=== PATIENT | male | born 1975 | race Caucasian/White ===

== ENCOUNTER 2019-11-05 20:45 | Emergency (ER) | payer OTHER ==
[2019-11-05 21:01] VITALS: BP 138/91; PULSE 87; TEMP 98.4; BMI 31.1
[2019-11-05] MEDS ORDERED: KETOROLAC TROMETHAMINE 30 MG/1 ML VIAL IM ONE (21:03)
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
[2019-11-05] MEDS ORDERED: KETOROLAC TROMETHAMINE 30 MG/1 ML VIAL ONE (22:09)
== END 2019-11-05 22:22 | disposition home or self-care (01) ==
LOC: JER 20:45
PROC: 3E0233Z Introduction of Anti-inflammatory into Muscle, Percutaneous Approach (ICD-10-PCS; principal; 2019-11-05)
DX: S63.602A Unspecified sprain of left thumb, initial encounter (principal); S39.012A Strain of muscle, fascia and tendon of lower back, initial encounter
CPT/HCPCS: 73130-TC-LT-FY; 99284-25